=== PATIENT | female | born 1945 | race Caucasian/White ===

== ENCOUNTER 2017-06-26 14:22 | Inpatient (IN) | payer MEDICARE, OTHER ==
--- NOTE | 2017-06-26 14:35 | ED Physician Documentation ---
PD HPI ABD PAIN - Stated complaint Stated Complaint: NAUSEA,COUGH,SOA - Chief complaint Chief Complaint: Abd Pain - History obtained from History obtained from: Patient - History of Present Illness Timing - onset: Other (This is a 71-year-old woman with history of atrial fibrillation on Eliquis, also hysterectomy, cholecystectomy, and melanoma 20 years ago who presents with 5 days of feeling like her upper abdomen is occasionally in pain and hard with shortness of breath that is exertional but not positional. It is not associated with any pedal edema or calf pain but she did have right upper leg cramping last night. She feels very nauseous and has a moderate amount of epigastric pain.) Review of Systems Constitutional: reports: Chills, Fatigue. denies: Fever Ears: denies: Ear pain Nose: denies: Rhinorrhea / runny nose, Congestion Throat: denies: Sore throat Cardiac: denies: Chest pain / pressure, Pedal edema, Calf pain Respiratory: reports: Dyspnea, Cough (dry) GI: reports: Abdominal Pain, Nausea, Vomiting. 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 LVN: Hysterectomy Derm: Skin cancer surgery - Present Medications Home Medications: Ambulatory Orders Medication Instructions Recorded Confirmed Atorvastatin [Lipitor] 0 mg DAILY 02/24/16 02/24/16 Cyclobenzaprine [Flexeril] 10 mg PO TID PRN #20 tablet 02/24/16 Estrogens, Conjugated [Premarin] 0.3 mg PO DAILY 02/24/16 02/24/16 Levothyroxine [Synthroid] 25 mcg PO QDAC 02/24/16 02/24/16 Lidocaine Patch 5% [Lidoderm Patch] 1 each TOP DAILY PRN #10 patch 02/24/16 Lisinopril 20 mg PO DAILY 02/24/16 02/24/16 Metformin HCl [Metformin HCl ER] 1,000 mg PO BID 02/24/16 02/24/16 Ondansetron Odt [Zofran] 4 mg TL Q6H PRN #10 tablet 02/24/16 - Allergies Allergies/Adverse Reactions: Allergies Allergy/AdvReac Type Severity Reaction Status Date / Time albuterol Allergy Unknown Verified 06/26/17 14:30 propoxyphene napsylate * Allergy Hallucinati Verified 06/26/17 14:30 [From Darvocet-N] ons tetracycline Allergy Unknown Verified 06/26/17 14:30 oxycodone HCl * AdvReac Hallucinati Verified 06/26/17 14:30 [From Percocet] ons - Social History Does the pt smoke?: No Smoking Status: Never smoker Does the pt drink ETOH?: No Does the pt have substance abuse?: No - Immunizations Immunizations are current?: Yes PD ED PE NORMAL - Vitals Vital signs reviewed: Yes (Tachycardic, hypertensive) - General General: Alert and oriented X 3, No acute distress - HEENT HEENT: PERRL, EOMI - Neck Neck: Supple, no meningeal sign, No bony TTP - Cardiac Cardiac: Other (Tachycardic, regular, no murmur) - Respiratory Respiratory: No respiratory distress, Clear bilaterally - Abdomen Abdomen: Other (Absent bowel tones, no tenderness.) - Back Back: No CVA TTP, No spinal TTP - Derm Derm: Normal color, Warm and dry - Extremities Extremities: No edema, No calf tenderness / cord - Neuro Neuro: Alert and oriented X 3, Normal speech - Psych Psych: Normal mood, Normal affect Results - Vitals Vitals: Vital Signs - 24 hr 06/26/17 06/26/17 14:27 14:32 Temperature 36.1 C L Heart Rate 121 H Respiratory 20 Rate Blood Pressure 191/95 H O2 Saturation 99 Oxygen O2 Source Room air - EKG (time done) 1435 Rate: Rate (enter#) (115) Rhythm: Sinus tachycardia [place]: Normal Intervals: Normal [place], Prolonged QT QRS: Normal Ischemia: Normal ST segments Computer interpretation: Agree with computer - Labs Labs: Laboratory Tests 06/26/17 06/26/17 06/26/17 14:35 14:35 14:35 WBC 6.7 RBC 4.33 Hgb 13.4 Hct 39.1 MCV 90.3 MCH 30.9 MCHC 34.2 RDW 15.6 H Plt Count 142 MPV 8.4 Neut # 4.4 Lymph # 1.4 L Ida # 0.7 Eos # 0.1 Baso # 0.0 Absolute Nucleated RBC 0.00 Nucleated RBC % 0.1 PT 14.9 H INR 1.3 H Sodium 133 L Potassium 2.5 L* Chloride 95 L Carbon Dioxide 23 Anion Gap 15.0 H BUN 17 Creatinine 0.8 Estimated GFR (MDRD) 71 L Glucose 98 Lactic Acid Calcium 9.2 Magnesium 1.5 L Total Bilirubin 3.4 H AST 159 H ALT 59 Alkaline Phosphatase 261 H Total Creatine Kinase 92 CK-MB (CK-2) Troponin I Total Protein 8.9 H Albumin 3.2 Globulin 5.7 H Albumin/Globulin Ratio 0.6 L Lipase 49 Ethyl Alcohol 06/26/17 06/26/17 06/26/17 14:35 14:35 14:50 WBC RBC Hgb Hct MCV MCH MCHC RDW Plt Count MPV Neut # Lymph # Ida # Eos # Baso # Absolute Nucleated RBC Nucleated RBC % PT INR Sodium Potassium Chloride Carbon Dioxide Anion Gap BUN Creatinine Estimated GFR (MDRD) Glucose Lactic Acid 2.3 H Calcium Magnesium Total Bilirubin AST ALT Alkaline Phosphatase Total Creatine Kinase CK-MB (CK-2) 2.4 Troponin I < 0.04 Total Protein Albumin Globulin Albumin/Globulin Ratio Lipase Ethyl Alcohol 5.7 - Rads (name of study) 2v chest Radiology: EMP read contemporaneously (normal) PD MEDICAL DECISION MAKING - ED course ED course: 71-year-old woman with abdominal pain, found to be jaundiced. She is status post remote cholecystectomy. Imaging as shown and concerning for malignancy. She also has severe hypokalemia. Spoke with Dr. Manning for admission and further evaluation including liver MRI and pelvic ultrasound at 5:15 PM. Departure - Departure Disposition: 66 [facility] DC/Xfer Clinical Impression: Liver mass, Ovarian mass, Hypokalemia Ascites Qualifiers: Ascites type: malignant Qualified Code(s): R18.0 - Malignant ascites Condition: Stable
[2017-06-26] MEDS ORDERED: SODIUM CHLORIDE 0.9% 1,000 ML IV ONE ×2 (14:37→15:21)
[2017-06-26] MEDS ORDERED: ONDANSETRON 4 MG/2 ML VIAL IVP STA (14:37)
[2017-06-26 14:46] LABS: BASOPHILS % (AUTO) 0.7 %; EOSINOPHILS # (AUTO) 0.1 10^3/uL (0.0-0.7); EOSINOPHILS % (AUTO) 0.8 %; HGB - HEMOGLOBIN 13.4 g/dL (12.0-16.0); LYMPHOCYTES # (AUTO) 1.4 10^3/uL (1.5-3.5); LYMPHOCYTES % (AUTO) 21.5 %; MEAN CORPUSCULAR HEMOGLOBIN 30.9 pg (27.0-31.0); MEAN CORPUSCULAR HGB CONC 34.2 g/dL (32.0-36.0); MEAN CORPUSCULAR VOLUME 90.3 fL (81.0-99.0); MEAN PLATELET VOLUME 8.4 fL (7.9-10.8); MONOCYTES # (AUTO) 0.7 10^3/uL (0.0-1.0); NEUTROPHILS # (AUTO) 4.4 10^3/uL (1.5-6.6); PLT - PLATELET COUNT 142 10^3/uL (130-450); RED BLOOD COUNT 4.33 10^6/uL (4.20-5.40); RED CELL DISTRIBUTION WIDTH 15.6 % (12.0-15.0); WHITE BLOOD COUNT 6.7 x10^3/uL (4.8-10.8)
[2017-06-26 14:54] LABS: INR 1.3 (0.8-1.2); PT - PROTHROMBIN TIME 14.9 secs (9.9-12.6)
[2017-06-26] MEDS ORDERED: IOPAMIDOL-300 50 ML VIAL ONE (15:03)
[2017-06-26 15:07] LABS: ALBUMIN 3.2 g/dL (3.2-5.5); ALBUMIN/GLOBULIN RATIO 0.6 (1.0-2.2); BILIRUBIN,TOTAL 3.4 mg/dL (0.2-1.0); CALCIUM 9.2 mg/dL (8.5-10.3); CREATININE 0.8 mg/dL (0.4-1.0); MAGNESIUM 1.5 mg/dL (1.7-2.8); TOTAL PROTEIN 8.9 g/dL (6.7-8.2); TROPONIN I < 0.04 ng/mL (<0.49)
[2017-06-26] MEDS ORDERED: POTASSIUM CHLOR 10 MEQ/100 ML 10 MEQ/100 ML BAG IV ONE ×2 (15:07→15:08)
[2017-06-26] MEDS ORDERED: MAGNESIUM SULFATE 2 GRAM 2 GM/50 ML BAG IV ONE (15:08)
[2017-06-26 15:09] LABS: CREATINE KINASE MB 2.4 ng/mL (0.6-6.3)
[2017-06-26] MEDS ORDERED: IOPAMIDOL-300 100 ML VIAL ONE (15:26)
--- NOTE | 2017-06-26 15:29 | XRAY Preliminary Report ---
Exam: XR CHEST 2 VIEW X-RAY IMPRESSION: No acute cardiopulmonary abnormality. [facility] SITE ID: [id number]
--- NOTE | 2017-06-26 15:30 | XRAY Report ---
EXAM: CHEST RADIOGRAPHY EXAM DATE: 06/26/2017 03:12 PM. CLINICAL HISTORY: Cough. COMPARISON: 04/27/2009. TECHNIQUE: 2 views. FINDINGS: Lungs/Pleura: No focal opacities evident. No pleural effusion. No pneumothorax. Normal volumes. Mediastinum: There is mild aortic arch atherosclerotic calcification. Heart size is normal. Other: None. IMPRESSION: No acute cardiopulmonary abnormality. [facility] Referring Provider Line: [phone] SITE ID: [id number]
[2017-06-26] MEDS ORDERED: IOPAMIDOL-300 50 ML VIAL PO ONE (16:44)
[2017-06-26] MEDS ORDERED: LORazepam 2 MG/ML VIAL IVP STA (16:44)
[2017-06-26] MEDS ORDERED: IOPAMIDOL-300 100 ML VIAL IVP ONE (16:46)
--- NOTE | 2017-06-26 17:07 | CT Report ---
EXAM: CT ABDOMEN AND PELVIS EXAM DATE: 06/26/2017 04:33 PM. CLINICAL HISTORY: IV and PO, abd pain, no bowel tones. COMPARISONS: None. TECHNIQUE: Routine helical CT imaging was performed through the abdomen and pelvis. IV contrast: ISOV UE 300 100mL. Enteric contrast: Yes. Reconstructions: Coronal and sagittal. In accordance with CT protocol optimization, one or more of the following dose reduction techniques w ere utilized for this exam: automated exposure control, adjustment of mA and/or KV based on patient s ize, or use of iterative reconstructive technique. FINDINGS: Lung Bases: Unremarkable. Liver: There are findings of diffuse and chronic liver disease with a moderately lobulated contour to the liver capsule. In segment 8, there is a round hyperdense lesion which measures 3.5 x 3.3 x 2.8 c m on series 3 image 15. The portal veins do not appear to enhance well with contrast and are difficul t to characterize. There is a crescent of contrast opacification in the left portal vein, raising the suspicion for portal venous clot or portal venous tumor. The hepatic veins are not well seen. The in ferior vena cava is patent. Gallbladder/Bile Ducts: Gallbladder is absent. Spleen: Normal. Pancreas: The pancreas is difficult to visualize, noting a dilated superior mesenteric vein and splen ic vein which appear isodense to pancreatic parenchyma. Adrenal Glands: Normal. Kidneys: Normal. No masses or hydronephrosis. Peritoneal Cavity/Bowel: There is a small volume of free fluid in the upper abdomen and lower abdomen . There are recanalized umbilical veins with multiple abdominal varices. There is edema of the wall o f the colon. There is no mechanical bowel obstruction. No organized abscess is seen. Pelvic Organs: There is a peripherally enhancing cystic lesion in the right adnexa measuring 4.6 x 3. 9 x 3.5 cm. Uterus not visualized. Left ovary is small in size. Vasculature: No aneurysm. Bones: There is multilevel degenerative disease of the spine. Other: None. IMPRESSION: 1. Findings of chronic liver disease and liver fibrosis/cirrhosis. 2. Heterogeneous hypoenhancement of the intrahepatic portal veins with dilated splenic veins and supe rior mesenteric veins. Findings suspicious for portal vein thrombosis versus portal vein tumor. 3. 3.5 cm segment 8 liver mass, hyperdense to liver parenchyma, should be considered worrisome for pr imary liver malignancy, with differential diagnosis including hypervascular liver metastasis or incid ental benign liver lesion. This lesion could be characterized with a dedicated liver MRI or multiphas e CT. 4. Small volume of ascites. 5. Multiple abdominal varices. 6. Colonic wall edema, likely secondary to ascites or liver disease. 7. Cystic lesion in the right ovary measuring 4.6 cm in diameter. Cyst versus benign or malignant cys tic neoplasm. [facility] Referring Provider Line: [phone] SITE ID: [id number]
[2017-06-26] MEDS ORDERED: TEMAZEPAM 15 MG CAPSULE PO PRN (17:39)
[2017-06-26] MEDS ORDERED: IBUPROFEN 600 MG TABLET PO PRN (17:39)
[2017-06-26] MEDS ORDERED: LORazepam 0.5 MG TABLET PO PRN (17:43)
[2017-06-26 18:09] LABS: BILIRUBIN,URINE NEGATIVE (NEGATIVE); GLUCOSE, URINE (UA) NEGATIVE (NEGATIVE); KETONES,URINE (UA) NEGATIVE (NEGATIVE); LEUKOCYTE ESTERASE, URINE NEGATIVE (NEGATIVE); NITRITE,URINE NEGATIVE (NEGATIVE); OCCULT BLOOD,URINE NEGATIVE (NEGATIVE); PH,URINE 7.5 PH (5.0-7.5); PROTEIN,URINE NEGATIVE (NEGATIVE); UROBILINOGEN,URINE 0.2 (NORMAL) E.U./dL (NORMAL)
[2017-06-26 18:11] LABS: CLARITY,URINE CLEAR (CLEAR)
[2017-06-26] MEDS ORDERED: HYDROmorphone 1 MG/ML SYRINGE IVP PRN (18:37)
[2017-06-26] MEDS ORDERED: LORazepam 0.5 MG TABLET SL PRN (18:51)
[2017-06-26] MEDS ORDERED: PROCHLORPERAZINE 25 MG SUPP PR PRN (18:52)
[2017-06-26] MEDS ORDERED: ONDANSETRON 4 MG/2 ML VIAL IVP PRN (18:52)
--- NOTE | 2017-06-26 18:53 | HISTORY & PHYSICAL EXAMINATION ---
Chief Complaint - Chief Complaint Chief Complaint: nausea, vomiting, diarrhea History of Present Illness - Admitted From Admitted From:: ED - History Obtained From Records Reviewed: yes History obtained from: chart review, patient Exam Limitations: ongoing N/V - History of Present Illness HPI Comment/Other: Sommer Deluna is a 71-year old white female with a past medical history of hypertension, hyperlipidemia, TIA, headaches, sinusitis, DM type 2, hypothyroidism, melanoma ~20, and recent atrial fibrillation on Eliquis. She presented reluctantly to the ED today after having uncontrolled N/V/D, abdominal pain, chills and fatigue. The onset of symptoms started a short time after being diagnosed with atrial fibrillation. She was found to have low magnesium, and low potassium serum blood levels and placed on high dose supplements. She states that her emotions became very flat, she became overwhelmed with her regular daily tasks, developed a dry cough, had daily frontal forehead headaches, and was profoundly tired for most days. About 4-5 days ago she had increased abdominal discomfort that began in her RUQ and felt crampy to her midline. This would come and go. She continued to feel nauseated , dizzy, now with vomiting and diarrhea. A CT abdomen/pelvis was completed in the ED and shows a liver and ovarian tumor, multiple abdominal varices, and colonic wall edema. Results were shared with patient and her son by ER doctor. She will be admitted for further treatment of her symptoms and an ultrasound/ MRI of abdomen/pelvis. History - Past Medical History Cardiovascular: reports: Hypertension, High cholesterol Respiratory: reports: None Neuro: reports: CVA, Headache/migraine Endocrine/Autoimmune: reports: Type 2 diabetes, HyPOthyroidism GI: reports: GERD ACT TUTOR: reports: None, Other : reports: None HEENT: reports: Chronic sinusitis Psych: reports: Depression, Anxiety Musculoskeletal: reports: None Derm: reports: None MRSA Hx?: No - Past Surgical History General: reports: Cholecystectomy, Appendectomy /ACT TUTOR: reports: Hysterectomy Derm: reports: Skin cancer surgery - Family & Social History Family History: Mother: , Father: , CAD, Sister: , Cancer Living arrangement: At home Living Situation: Alone Social History Notes: Patient is x 20 years [place] He has 3 kids, one son lives nearby and is her main support. 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 She denies alcohol use, but was + for alcohol at the time of admission, admits to daily marijuana use, denies tobacco abuse or illicit drug use. - Substance History Use: Uses substance without health or social issues: Cannabis Abuse: Recurrent use of substance despite neg consequences: Cannabis Dependence: Experiences withdrawal or developed tolerances: Cannabis Tobacco Details: Other - POLST Patient has POLST: No POLST Status: DNR Meds/Allgy - Home Medications Home Medications: Ambulatory Orders Medication Instructions Recorded Confirmed Estrogens, Conjugated [Premarin] 0.3 mg PO DAILY 02/24/16 06/27/17 Lisinopril 20 mg PO BID 02/24/16 06/27/17 Metformin HCl [Metformin HCl ER] 1,000 mg PO BIDWM 02/24/16 06/27/17 Apixaban [Eliquis] 5 mg PO BID 06/27/17 06/27/17 Chlorthalidone 12.5 mg PO DAILY 06/27/17 06/27/17 Lactobacillus Acidophilus 1 cap PO BIDWM 06/27/17 06/27/17 [Acidophilus Lactobacilli] Levothyroxine Sodium [Synthroid] 200 mcg PO QDAC 06/27/17 06/27/17 Magnesium Oxide [Magnesium] 250 mg PO BID 06/27/17 06/27/17 Metoprolol Succinate 50 mg PO QPM 06/27/17 06/27/17 Metoprolol Succinate 100 mg PO DAILY 06/27/17 06/27/17 Potassium Chloride 60 meq PO BID 06/27/17 06/27/17 - Allergies Allergies/Adverse Reactions: Allergies Allergy/AdvReac Type Severity Reaction Status Date / Time albuterol Allergy Unknown Verified 06/26/17 14:30 propoxyphene napsylate * Allergy Hallucinati Verified 06/26/17 14:30 [From Darvocet-N] ons tetracycline Allergy Unknown Verified 06/26/17 14:30 oxycodone HCl * AdvReac Hallucinati Verified 06/26/17 14:30 [From Percocet] ons Review of Systems - Constitutional Constitutional: reports: Fatigue, Weakness, Poor appetite - Eyes Eyes: reports: Corrective lenses - Ears, Nose & Throat Ears, Nose & Throat: reports: Nasal congestion - Cardiovascular Cariovascular: reports: Irregular heart rate, Palpitations, Edema, Decr. exercise tolerance - Respiratory Respiratory: reports: Cough (chronic) - Gastrointestinal Gastrointestinal: reports: Abdominal pain, Abdominal distention, Diarrhea, Change in bowel habits, Nausea, Vomiting, Bile emesis, Reflux/heartburn, Bloating, Poor appetite - Genitourinary Genitourinary: reports: Frequency - Musculoskeletal Musculoskeletal: reports: Joint swelling - Neurological Neurological: reports: General weakness, Headache, Other (nausea x3 months.) - Psychiatric Psychiatric: reports: Depression - All Other Systems All Other Systems: reports: Reviewed and negative Exam - Vital Signs Reviewed Vital Signs: Yes Vital Signs: Vital Signs x48h Temp Pulse Resp BP Pulse Ox 06/26/17 18:27 36.8 C 88 16 154/77 H 99 - Physical Exam General Appearance: positive: Alert, Moderate distress, Anxious Eyes Bilateral: positive: Normal inspection, PERRL ENT: positive: ENT inspection nml, Pharynx nml, Dry mucous membranes Neck: positive: Nml inspection, Thyroid nml, No JVD, Trachea midline, Stiff neck Respiratory: positive: Chest non-tender, No respiratory distress, Other ( diminished) Cardiovascular: positive: Regular rate & rhythm, No gallop, Decreased pulse(s) Peripheral Pulses: positive: 2+ Abdomen: positive: Guarding, Rebound, Hepatomegaly, Abnml bowel sounds (hypo) Skin: positive: No rash, Warm, Dry Extremities: positive: Non-tender, Full ROM, No pedal edema Neurologic/Psychiatric: positive: Oriented x3, CN's nml (2-12), Motor nml, Sensation nml, Depressed mood/affect Reflexes: Bicep (R): 3+, Bicep (L): 3+ Conclusion/Plan - Problem List (1) Intractable nausea and vomiting Conclusion/Plan: Patient has admitted to slight nausea daily that began ~3 months ago, but has progressively increased to the point that it has now caused vomiting. Plan: Head CT to rule out acute bleed, or tumor as a cause of nausea. This is likely a consequence of liver cirrhosis. We will continue antiemetics for symptom management. (2) Hypokalemia Conclusion/Plan: Patient admits to chronically being hypokalemic for at least since January 2017 when she was found to have atrial fibrillation. Patient had a very low K+ of just 2.5 upon admission to ED. She was started on replacement, and once arriving to the nursing floor was put on a maintenance fluid with 20Meq @ 100ml/ hour. Plan: Continue to monitor labs, and replace as needed. (3) Liver mass Conclusion/Plan: A CT of abdomen/pelvis was completed on admission and showed a 3.5 cm segment 8 liver mass, worrisome for primary liver malignancy. Patient and son made aware of this finding via ED doctor. Plan: MRI would be ideal and can be ordered for Wednesday if patient is agreeable to staying another night. (4) Ovarian mass Conclusion/Plan: A CT abdomen/pelvis was completed on admission and shows a cystic lesion in the right ovary measuring 4.6cm in diameter. Cyst versus benign or malignant cystic neoplasm. Plan: Ultrasound of pelvis will be ordered before discharge. (5) Headache Conclusion/Plan: Patient notes a "dull" headache that started several months ago. She points to in her frontal region right above her bilateral eyes. Plan: Treat with pain medications. Will suggest sinus lavage when patient discharges. Qualifiers: Headache type: unspecified Headache chronicity pattern: acute headache Intractability: not intractable Qualified Code(s): R51 - Headache - Lab Results Lab results reviewed: Yes Fish Bones: 06/27/17 06:10 06/27/17 17:11 - Diagnostic Imaging Results Diagnostic Imaging Results: positive: Prelim report reviewed, Final report reviewed - EKG Results EKG Interpreted Independently: Yes Core Measures - Anticipated LOS I expect patient to be DC'd or transferred within 96 hours.: Yes - DVT/VTE - Prophylaxis VTE/DVT Device ordered at admit?: Yes VTE/DVT Prophylaxis med ordered at admit?: No Not Ordered - Medical Reason: Contraindicated - Stroke - Rehab Assessment Rehab services assessment to be ordered?: No Not Ordered - Medical Reason: Contraindicated - AMI - Statin at Admit Aspirin Prescribed on Admit: No Not Ordered - Medical Reason: Contraindicated
[2017-06-26] MEDS: PANTOPRAZOLE 40 MG TABLET PO SCH (18:54)
[2017-06-26] MEDS: NS W/20 MEQ KCL 1,000 ML IV SCH (18:55)
[2017-06-26] MEDS ORDERED: SODIUM CHLORIDE FLUSH 0.9% 10 ML SYRINGE ONE (18:56)
[2017-06-26] MEDS: INSULIN ASPART 300 UNIT/3 ML PEN SUBQ SCH (20:40)
[2017-06-26] MEDS: METOCLOPRAMIDE 10 MG/2 ML VIAL IVP SCH (20:55)
[2017-06-26] MEDS: INSULIN GLARGINE 300 UNIT/3 ML PEN SUBQ SCH (20:55)
[2017-06-26] MEDS: SODIUM CHLORIDE FLUSH 0.9% 10 ML SYRINGE IVP SCH (21:45)
--- NOTE | 2017-06-27 00:05 | CT Preliminary Report ---
Exam: CT HEAD W/O IMPRESSION: Normal noncontrast head CT. [facility] SITE ID: [id number]
--- NOTE | 2017-06-27 00:07 | CT Report ---
EXAM: CT HEAD EXAM DATE: 06/26/2017 10:29 PM. CLINICAL HISTORY: Tumor, bleed. COMPARISON: Brain MRI 02/24/2016. TECHNIQUE: Multiaxial CT images were obtained from the foramen magnum to the vertex. Reformats: Coron al. IV contrast: None. In accordance with CT protocol optimization, one or more of the following dose reduction techniques w ere utilized for this exam: automated exposure control, adjustment of mA and/or KV based on patient s ize, or use of iterative reconstructive technique. FINDINGS: Parenchyma: No intraparenchymal hemorrhage. No evidence of mass, midline shift, or CT findings of inf arction. Benitez-white differentiation is distinct. Extraaxial Spaces: Normal for age. No subdural or epidural collections identified. Ventricles: Normal in size and position. Sinuses and Orbits: Imaged paranasal sinuses, orbits, and mastoids show no significant abnormality. Bones: No evidence of fracture or calvarial defect. Other: None. IMPRESSION: Normal noncontrast head CT. [facility] Referring Provider Line: [phone] SITE ID: [id number]
[2017-06-27] MEDS: SODIUM CHLORIDE FLUSH 0.9% 10 ML SYRINGE IVP PRN (02:15)
[2017-06-27] MEDS: METOCLOPRAMIDE 10 MG/2 ML VIAL IVP SCH ×4 (02:15→20:16)
[2017-06-27] MEDS: NS W/20 MEQ KCL 1,000 ML IV SCH ×2 (03:37→17:23)
[2017-06-27] MEDS: SODIUM CHLORIDE FLUSH 0.9% 10 ML SYRINGE IVP SCH ×3 (06:03→21:40)
[2017-06-27] MEDS: PANTOPRAZOLE 40 MG TABLET PO SCH (06:03)
[2017-06-27 06:22] LABS: BASOPHILS % (AUTO) 0.2 %; EOSINOPHILS % (AUTO) 0.1 %; HGB - HEMOGLOBIN 11.5 g/dL (12.0-16.0); LYMPHOCYTES # (AUTO) 0.6 10^3/uL (1.5-3.5); LYMPHOCYTES % (AUTO) 16.8 %; MEAN CORPUSCULAR HEMOGLOBIN 30.7 pg (27.0-31.0); MEAN CORPUSCULAR HGB CONC 34.1 g/dL (32.0-36.0); MEAN CORPUSCULAR VOLUME 90.1 fL (81.0-99.0); MEAN PLATELET VOLUME 8.5 fL (7.9-10.8); MONOCYTES # (AUTO) 0.3 10^3/uL (0.0-1.0); MONOCYTES % (AUTO) 8.1 %; NEUTROPHILS # (AUTO) 2.8 10^3/uL (1.5-6.6); NEUTROPHILS % (AUTO) 74.8 %; PLT - PLATELET COUNT 84 10^3/uL (130-450); RED BLOOD COUNT 3.75 10^6/uL (4.20-5.40); RED CELL DISTRIBUTION WIDTH 15.4 % (12.0-15.0); WHITE BLOOD COUNT 3.8 x10^3/uL (4.8-10.8)
[2017-06-27 06:34] LABS: INR 1.4 (0.8-1.2); PT - PROTHROMBIN TIME 15.5 secs (9.9-12.6)
[2017-06-27 06:40] LABS: ALBUMIN 2.6 g/dL (3.2-5.5); ALBUMIN/GLOBULIN RATIO 0.5 (1.0-2.2); BILIRUBIN,TOTAL 2.8 mg/dL (0.2-1.0); CALCIUM 8.3 mg/dL (8.5-10.3); CREATININE 0.7 mg/dL (0.4-1.0); MAGNESIUM 1.8 mg/dL (1.7-2.8); TOTAL PROTEIN 7.5 g/dL (6.7-8.2)
[2017-06-27 06:57] LABS: HB2 TOTAL 12.3 g/dL; HEMOGLOBIN A1C 0.42 g/dL; HEMOGLOBIN A1C % 5.3 % (4.6-6.2)
--- NOTE | 2017-06-27 08:59 | PROVIDER PROGRESS NOTE ---
Subjective - Prog Note Date Prog Note Date: 06/27/17 Prog Note Time: 08:59 - Subjective Pt reports feeling: Improved Subjective: Sommer states that she would be much happier at home, but reluctantly agrees to stay tonight given her numerous stools and abnormal electrolytes. Patient can undergo further testing is she is agreeable to stay as tomorrow is Wednesday. She denies SOB, chest pain, or a new cough. She admits to less nausea today, not vomiting and can tolerate a moderate amount of fluids. Current Medications - Current Medications Current Medications: Active Medications Apixaban (Eliquis) 5 mg PO BID [facility] Last Admin: 06/27/17 21:37 Dose: 5 mg Diphenoxylate HCl/Atropine (Lomotil) 1 tab PO QID PRN PRN Reason: Diarrhea Last Admin: 06/27/17 21:55 Dose: 1 tab Dronabinol (Marinol) 2.5 mg PO BIDAC [facility] Last Admin: 06/27/17 21:36 Dose: Not Given Hydromorphone HCl (Dilaudid Inj Syringe) 0.5 mg IVP Q2H PRN PRN Reason: PAIN Last Admin: 06/26/17 18:55 Dose: 0.5 mg Potassium Chloride/Sodium Chloride (Normal Saline 0.9% W/20 Meq Kcl) 1,000 mls @ 100 mls/hr IV .Q10H [facility] Last Admin: 06/27/17 17:23 Dose: 100 mls/hr Ibuprofen (Motrin) 600 mg PO Q6HR PRN PRN Reason: Pain 1 to 4 Insulin Aspart (Novolog) 1 - 5 unit SUBQ 0800,1200,1700,2100 [facility] PRN Reason: Protocol Last Admin: 06/27/17 21:35 Dose: Not Given Insulin Glargine (Lantus Solostar) 10 unit SUBQ QPM [facility] Last Admin: 06/27/17 21:39 Dose: 10 unit Levothyroxine Sodium (Synthroid) 200 mcg PO QDAC [facility] Last Admin: 06/27/17 12:04 Dose: 200 mcg Lisinopril (Zestril) 20 mg PO BID [facility] Last Admin: 06/27/17 21:38 Dose: 20 mg Loperamide HCl (Imodium Liquid) 2 mg PO Q4H PRN PRN Reason: Diarrhea Lorazepam (Ativan) 0.5 mg PO Q4H PRN PRN Reason: Anxiety Lorazepam (Ativan) 0.5 mg SL Q6H PRN PRN Reason: Anxiety Last Admin: 06/26/17 23:43 Dose: 0.5 mg Lorazepam (Ativan) 1 mg PO TID [facility] Last Admin: 06/27/17 21:38 Dose: 1 mg Metoclopramide HCl (Reglan Inj) 5 mg IVP Q6H [facility] Last Admin: 06/27/17 20:16 Dose: 5 mg Metoprolol Succinate (Toprol Xl) 50 mg PO QPM [facility] Last Admin: 06/27/17 21:37 Dose: 50 mg Metoprolol Succinate (Toprol Xl) 100 mg PO DAILY [facility] Last Admin: 06/27/17 12:05 Dose: 100 mg Ondansetron HCl (Zofran Inj) 4 mg IVP Q6HR PRN PRN Reason: Nausea / Vomiting Last Admin: 06/26/17 19:07 Dose: 4 mg Pantoprazole Sodium (Protonix) 40 mg PO QDAC [facility] Last Admin: 06/27/17 06:03 Dose: 40 mg Polyethylene Glycol (Miralax) 17 gm PO DAILY [facility] Last Admin: 06/27/17 09:09 Dose: Not Given Prochlorperazine Maleate (Compazine Supp) 25 mg RI TID PRN PRN Reason: Nausea / Vomiting Last Admin: 06/26/17 19:45 Dose: 25 mg Sodium Chloride (Normal Saline Flush 0.9%) 10 ml IVP PRN PRN PRN Reason: NEEDED PER PROVIDER ORDERS Last Admin: 06/27/17 02:15 Dose: 10 ml Sodium Chloride (Normal Saline Flush 0.9%) 10 ml IVP Q8HR [facility] Last Admin: 06/27/17 21:40 Dose: Not Given Spironolactone (Aldactone) 50 mg PO DAILY [facility] Last Admin: 06/27/17 21:55 Dose: 50 mg Temazepam (Restoril) 15 mg PO QPM PRN PRN Reason: Insomnia Estrogens, Conjugated [Premarin] 0.3 mg PO DAILY 02/24/16 Metformin HCl [Metformin HCl ER] 1,000 mg PO BIDWM 02/24/16 RX: Lisinopril 20 mg PO BID 10/03/16 Apixaban [Eliquis] 5 mg PO BID 06/27/17 Levothyroxine Sodium [Synthroid] 200 mcg PO QDAC 06/27/17 Magnesium Oxide [Magnesium] 250 mg PO BID 06/27/17 RX: Chlorthalidone 12.5 mg PO DAILY 06/27/17 RX: Lactobacillus Acidophilus [Acidophilus Lactobacilli] 1 cap PO BIDWM RX: Metoprolol Succinate 50 mg PO QPM 06/27/17 RX: Metoprolol Succinate 100 mg PO DAILY 06/27/17 RX: Potassium Chloride 60 meq PO BID 06/27/17 Objective - Vital Signs/Intake & Output Reviewed Vital Signs: Yes Vital Signs: Vital Signs x48h Temp Pulse Resp BP Pulse Ox 06/27/17 08:03 36.6 C 104 H 18 138/88 H 98 06/27/17 06:00 36.5 C 95 16 129/79 98 06/27/17 01:29 36.5 C 92 16 133/75 H 96 Intake & Output: Intake & Output 06/24/17 06/25/17 06/26/17 06/27/17 23:59 23:59 23:59 23:59 Intake Total 150 870 Balance 150 870 - Objective General Appearance: positive: No acute distress, Alert, Anxious Eyes Bilateral: positive: Normal inspection, PERRL ENT: positive: ENT inspection nml, Pharynx nml, Dry mucous membranes Neck: positive: Nml inspection, Thyroid nml, No JVD, Trachea midline, Stiff neck Respiratory: positive: Chest non-tender, No respiratory distress, Breath sounds nml Cardiovascular: positive: No gallop, Irregularly irregular, Systolic murmur, Decreased pulse(s) Peripheral Pulses: 2+ Radial (R), 2+ Radial (L) Abdomen: positive: Tenderness, Guarding, Hepatomegaly, Abnml bowel sounds Back: positive: Nml inspection Skin: positive: No rash, Warm, Dry Extremities: positive: Non-tender, Full ROM, Nml appearance, No pedal edema Neurologic/Psychiatric: positive: Oriented x3, CN's nml (2-12), Motor nml, Sensation nml, Depressed mood/affect Reflexes: Bicep (R): 2+, Bicep (L): 2+ - Lab Results Fish Bones: 06/27/17 06:10 06/27/17 17:11 Other Labs: Lab Results x24hrs 06/27/17 06/27/17 06/27/17 Range/Units 07:16 06:10 06:10 WBC (4.8-10.8) x10^3/uL RBC (4.20-5.40) 10^6/uL Hgb (12.0-16.0) g/dL Hct (37.0-47.0) % MCV (81.0-99.0) fL MCH (27.0-31.0) pg MCHC (32.0-36.0) g/dL RDW (12.0-15.0) % Plt Count (130-450) 10^3/uL MPV (7.9-10.8) fL Neut # (1.5-6.6) 10^3/uL Lymph # (1.5-3.5) 10^3/uL [place] # (0.0-1.0) 10^3/uL Eos # (0.0-0.7) 10^3/uL Baso # (0.0-0.1) 10^3/uL Absolute Nucleated RBC x10^3/uL Nucleated RBC % /100WBC PT (9.9-12.6) secs INR (0.8-1.2) Sodium (135-145) mmol/L Potassium (3.5-5.0) mmol/L Chloride (101-111) mmol/L Carbon Dioxide (21-32) mmol/L Anion Gap (6-13) BUN (6-20) mg/dL Creatinine (0.4-1.0) mg/dL Estimated GFR (MDRD) (>89) Glucose (70-100) mg/dL POC Whole Bld Glucose 118 H (70 - 100) mg/dL Glycated Hemoglobin (4.6-6.2) % Estim Average Glucose (70-100) Calcium (8.5-10.3) mg/dL Magnesium (1.7-2.8) mg/dL Total Bilirubin (0.2-1.0) mg/dL AST (10-42) IU/L ALT (10-60) IU/L Alkaline Phosphatase (42-121) IU/L Ammonia (7-35) umol/L Total Creatine Kinase (22-269) IU/L Troponin I < 0.04 (<0.49) ng/mL Total Protein (6.7-8.2) g/dL Albumin (3.2-5.5) g/dL Globulin (2.1-4.2) g/dL Albumin/Globulin Ratio (1.0-2.2) Triglycerides ( - 149) mg/dL Amylase (28-100) U/L TSH 10.44 H (0.34-5.60) uIU/mL 06/27/17 06/27/17 06/27/17 Range/Units 06:10 06:10 06:10 WBC (4.8-10.8) x10^3/uL RBC (4.20-5.40) 10^6/uL Hgb (12.0-16.0) g/dL Hct (37.0-47.0) % MCV (81.0-99.0) fL MCH (27.0-31.0) pg MCHC (32.0-36.0) g/dL RDW (12.0-15.0) % Plt Count (130-450) 10^3/uL MPV (7.9-10.8) fL Neut # (1.5-6.6) 10^3/uL Lymph # (1.5-3.5) 10^3/uL [place] # (0.0-1.0) 10^3/uL Eos # (0.0-0.7) 10^3/uL Baso # (0.0-0.1) 10^3/uL Absolute Nucleated RBC x10^3/uL Nucleated RBC % /100WBC PT 15.5 H (9.9-12.6) secs INR 1.4 H (0.8-1.2) Sodium 135 (135-145) mmol/L Potassium 3.0 L (3.5-5.0) mmol/L Chloride 102 (101-111) mmol/L Carbon Dioxide 22 (21-32) mmol/L Anion Gap 11.0 (6-13) BUN 15 (6-20) mg/dL Creatinine 0.7 (0.4-1.0) mg/dL Estimated GFR (MDRD) 82 L (>89) Glucose 122 H (70-100) mg/dL POC Whole Bld Glucose (70 - 100) mg/dL Glycated Hemoglobin (4.6-6.2) % Estim Average Glucose (70-100) Calcium 8.3 L (8.5-10.3) mg/dL Magnesium 1.8 (1.7-2.8) mg/dL Total Bilirubin 2.8 H (0.2-1.0) mg/dL AST 133 H (10-42) IU/L ALT 51 (10-60) IU/L Alkaline Phosphatase 211 H (42-121) IU/L Ammonia 18.5 (7-35) umol/L Total Creatine Kinase 160 (22-269) IU/L Troponin I (<0.49) ng/mL Total Protein 7.5 (6.7-8.2) g/dL Albumin 2.6 L (3.2-5.5) g/dL Globulin 4.9 H (2.1-4.2) g/dL Albumin/Globulin Ratio 0.5 L (1.0-2.2) Triglycerides 83 ( - 149) mg/dL Amylase 34 (28-100) U/L TSH (0.34-5.60) uIU/mL 06/27/17 06/27/17 06/26/17 Range/Units 06:10 06:10 20:32 WBC 3.8 L (4.8-10.8) x10^3/uL RBC 3.75 L (4.20-5.40) 10^6/uL Hgb 11.5 L (12.0-16.0) g/dL Hct 33.8 L (37.0-47.0) % MCV 90.1 (81.0-99.0) fL MCH 30.7 (27.0-31.0) pg MCHC 34.1 (32.0-36.0) g/dL RDW 15.4 H (12.0-15.0) % Plt Count 84 L (130-450) 10^3/uL MPV 8.5 (7.9-10.8) fL Neut # 2.8 (1.5-6.6) 10^3/uL Lymph # 0.6 L (1.5-3.5) 10^3/uL [place] # 0.3 (0.0-1.0) 10^3/uL Eos # 0.0 (0.0-0.7) 10^3/uL Baso # 0.0 (0.0-0.1) 10^3/uL Absolute Nucleated RBC 0.00 x10^3/uL Nucleated RBC % 0.0 /100WBC PT (9.9-12.6) secs INR (0.8-1.2) Sodium (135-145) mmol/L Potassium (3.5-5.0) mmol/L Chloride (101-111) mmol/L Carbon Dioxide (21-32) mmol/L Anion Gap (6-13) BUN (6-20) mg/dL Creatinine (0.4-1.0) mg/dL Estimated GFR (MDRD) (>89) Glucose (70-100) mg/dL POC Whole Bld Glucose 123 H (70 - 100) mg/dL Glycated Hemoglobin 5.3 (4.6-6.2) % Estim Average Glucose 105 H (70-100) Calcium (8.5-10.3) mg/dL Magnesium (1.7-2.8) mg/dL Total Bilirubin (0.2-1.0) mg/dL AST (10-42) IU/L ALT (10-60) IU/L Alkaline Phosphatase (42-121) IU/L Ammonia (7-35) umol/L Total Creatine Kinase (22-269) IU/L Troponin I (<0.49) ng/mL Total Protein (6.7-8.2) g/dL Albumin (3.2-5.5) g/dL Globulin (2.1-4.2) g/dL Albumin/Globulin Ratio (1.0-2.2) Triglycerides ( - 149) mg/dL Amylase (28-100) U/L TSH (0.34-5.60) uIU/mL - Diagnostic Imaging Diagnostic Imaging Results: positive: Final report reviewed Diagnostic Imaging Comments: Chest x-ray 2-view: FINDINGS: Lungs/Pleura: No focal opacities evident. No pleural effusion. No pneumothorax. Normal volumes. Mediastinum: There is mild aortic arch atherosclerotic calcification. Heart size is normal. Other: None. IMPRESSION: No acute cardiopulmonary abnormality. CT head: ordered due to ongoing nausea. FINDINGS: Parenchyma: No intraparenchymal hemorrhage. No evidence of mass, midline shift, or CT findings of infarction. Benitez-white differentiation is distinct. Extraaxial Spaces: Normal for age. No subdural or epidural collections identified. Ventricles: Normal in size and position. Sinuses and Orbits: Imaged paranasal sinuses, orbits, and mastoids show no significant abnormality. Bones: No evidence of fracture or calvarial defect. Other: None. IMPRESSION: Normal noncontrast head CT. Abdomen/Pelvis CT: FINDINGS: Lung Bases: Unremarkable. Liver: There are findings of diffuse and chronic liver disease with a moderately lobulated contour to the liver capsule. In segment 8, there is a round hyperdense lesion which measures 3.5 x 3.3 x 2.8 cm on series 3 image 15. The portal veins do not appear to enhance well with contrast and are difficult to characterize. There is a crescent of contrast opacification in the left portal vein, raising the suspicion for portal venous clot or portal venous tumor. The hepatic veins are not well seen. The inferior vena cava is patent. Gallbladder/Bile Ducts: Gallbladder is absent. Spleen: Normal. Pancreas: The pancreas is difficult to visualize, noting a dilated superior mesenteric vein and splenic vein which appear isodense to pancreatic parenchyma. Adrenal Glands: Normal. Kidneys: Normal. No masses or hydronephrosis. Peritoneal Cavity/Bowel: There is a small volume of free fluid in the upper abdomen and lower abdomen. There are recanalized umbilical veins with multiple abdominal varices. There is edema of the wall of the colon. There is no mechanical bowel obstruction. No organized abscess is seen. Pelvic Organs: There is a peripherally enhancing cystic lesion in the right adnexa measuring 4.6 x 3.9 x 3.5 cm. Uterus not visualized. Left ovary is small in size. Vasculature: No aneurysm. Bones: There is multilevel degenerative disease of the spine. Other: None. IMPRESSION: 1. Findings of chronic liver disease and liver fibrosis/cirrhosis. 2. Heterogeneous hypoenhancement of the intrahepatic portal veins with dilated splenic veins and superior mesenteric veins. Findings suspicious for portal vein thrombosis versus portal vein tumor. 3. 3.5 cm segment 8 liver mass, hyperdense to liver parenchyma, should be considered worrisome for primary liver malignancy, with differential diagnosis including hypervascular liver metastasis or incidental benign liver lesion. This lesion could be characterized with a dedicated liver MRI or multiphase CT. 4. Small volume of ascites. 5. Multiple abdominal varices. 6. Colonic wall edema, likely secondary to ascites or liver disease. 7. Cystic lesion in the right ovary measuring 4.6 cm in diameter. Cyst versus benign or malignant cystic neoplasm. Assessment/Plan - Problem List (1) Intractable nausea and vomiting Impression: Patient has admitted to slight nausea daily that began ~3 months ago, but has progressively increased to the point that it has now caused vomiting. For today' s exam, nausea is less, vomiting is resolved, but diarrhea has not slowed down. Head CT to rule out acute bleed, or tumor as a cause of nausea, which was negative. This is likely a consequence of liver cirrhosis. Plan: We will continue antiemetics Lorazepam, and Reglan was added for symptom management. (2) Hypokalemia Impression: Patient admits to chronically being hypokalemic for at least since January 2017 when she was found to have atrial fibrillation. Patient had a very low K+ of just 2.5 upon admission to ED. She was started on replacement, and once arriving to the nursing floor was put on a maintenance fluid with 20Meq @ 100ml/ hour, which she remains on. Her K+ was improved today at 3, but decreased again to 2.8 upon re-check this evening. Plan: Continue to monitor labs, and replace as needed. Spironolactone 50mg daily was added as a K+ sparing agent. (3) Liver mass Impression: A CT of abdomen/pelvis was completed on admission and showed a 3.5 cm segment 8 liver mass, worrisome for primary liver malignancy. Patient and son made aware of this finding via ED doctor. Plan: MRI would be ideal and can be ordered for Wednesday if patient is agreeable to staying another night. A hepatitis panel was ordered and is pending as per PCP request. (4) Ovarian mass Impression: A CT abdomen/pelvis was completed on admission and shows a cystic lesion in the right ovary measuring 4.6cm in diameter. Cyst versus benign or malignant cystic neoplasm. Plan: Ultrasound of pelvis will be ordered before discharge and the results are pending. Cancer marker labs were ordered and pending. (5) Headache Impression: Patient notes a "dull" headache that started several months ago. She points to in her frontal region right above her bilateral eyes. Headache persists today. Plan: Treat with pain medications. Will suggest sinus lavage when patient discharges. Qualifiers: Headache type: unspecified Headache chronicity pattern: acute headache Intractability: not intractable Qualified Code(s): R51 - Headache
[2017-06-27] MEDS ORDERED: ENOXAPARIN 40 MG/0.4 ML SYRINGE SUBQ SCH (09:00)
[2017-06-27] MEDS: INSULIN ASPART 300 UNIT/3 ML PEN SUBQ SCH ×4 (09:08→21:35)
[2017-06-27] MEDS: POLYETHYLENE GLYCOL 3350 17 GM PACKET PO SCH (09:09)
[2017-06-27] MEDS ORDERED: LEVOTHYROXINE 25 MCG TABLET PO SCH (11:20)
[2017-06-27] MEDS ORDERED: MAGNESIUM SULFATE 2 GRAM 2 GM/50 ML BAG IV SCH (11:26)
[2017-06-27] MEDS ORDERED: POTASSIUM CHLORIDE INJ 40 MEQ in SODIUM CHLORIDE 0.9% 480 ML IV SCH (12:00)
[2017-06-27] MEDS: LEVOTHYROXINE 100 MCG TABLET PO SCH (12:04)
[2017-06-27] MEDS: METOPROLOL SUCCINATE 50 MG TABLET PO SCH (12:05)
[2017-06-27] MEDS: APIXABAN 2.5 MG TABLET PO SCH ×2 (12:06→21:37)
[2017-06-27] MEDS: LISINOPRIL 20 MG TABLET PO SCH ×2 (12:06→21:38)
[2017-06-27 17:28] LABS: CALCIUM 8.4 mg/dL (8.5-10.3); CREATININE 0.9 mg/dL (0.4-1.0)
[2017-06-27] MEDS ORDERED: DIPHENOX/ATROPINE 2.5/0.025 MG TABLET PO PRN (20:27)
[2017-06-27] MEDS ORDERED: LOPERAMIDE 2 MG/10 ML UDC PO PRN (20:46)
[2017-06-27] MEDS ORDERED: METOPROLOL SUCCINATE 50 MG TABLET PO SCH (21:00)
[2017-06-27] MEDS: DRONABINOL 2.5 MG CAPSULE PO SCH (21:36)
[2017-06-27] MEDS: LORazepam 0.5 MG TABLET PO SCH (21:38)
[2017-06-27] MEDS: INSULIN GLARGINE 300 UNIT/3 ML PEN SUBQ SCH (21:39)
[2017-06-27] MEDS: SPIRONOLACTONE 25 MG TABLET PO SCH (21:55)
--- NOTE | 2017-06-27 22:39 | Ultrasound Preliminary Report ---
Exam: US ABDOMEN LIMITED IMPRESSION: 1. 1. Technically compromised exam due to patient body habitus. 2. Majority of the main portal vein appears thrombosed, with a few areas of possible patency seen at the distal portion near the portal splenic confluence. 2. Partially thrombosed appearing left portal vein. Thrombosed right portal vein. 3. Diffuse coarsened hepatic parenchymal echogenicity representing cirrhosis. Known liver mass could not identify on this exam. 4. Small-volume upper abdominal ascites. 5. Status post cholecystectomy. No pathologic biliary dilatation. [facility] SITE ID: [id number]
--- NOTE | 2017-06-27 22:52 | Ultrasound Preliminary Report ---
Exam: US PELVIC COMPLETE - NON OB IMPRESSION: 1. Cystic lesion within the right adnexa corresponding with a prior CT noted abnormality. There is villanueva ggestion of internal septation and potential internal debris. Further assessment could be considered with MRI if clinically warranted. 2. Left ovary is not identified on this exam. 3. Medium amount of fluid layering within the pelvis. 4. Uterus is absent. [facility] SITE ID: [id number]
--- NOTE | 2017-06-27 22:59 | Ultrasound Report ---
EXAM: ABDOMEN ULTRASOUND LIMITED, RUQ EXAM DATE: 06/27/2017 09:47 PM. CLINICAL HISTORY: Liver mass, history of melanoma, and chronic liver disease. COMPARISON: CT 06/26/2017. TECHNIQUE: Real-time scanning was performed with static images obtained. FINDINGS: Liver: Heterogeneous liver echogenicity. No suspicious focal lesion. Liver measures 15.8 cm in length . Portal Vein: Main portal vein appears at least partially thrombosed. There is a small area of patent blood flow seen within the distal main portal vein. Partially patent left portal vein. Left hepatic vein appears patent. Gallbladder: Surgically absent. Biliary System: CBD measures 5.5 mm. No intrahepatic or extrahepatic ductal dilatation. Pancreas: Normal appearing head and body. Other portions are obscured by overlying structures. Right Kidney: Visualized portions of the right kidney are without significant abnormality. Right kid luis measures 11.8 cm in length. Other: There is volume perihepatic ascites. IMPRESSION: 1. Technically compromised exam due to patient body habitus. 2. Majority of the main portal vein appears thrombosed, with a few areas of possible patency seen at the distal portion near the portal splenic confluence. 2. Partially thrombosed-appearing left portal vein. Thrombosed right portal vein. 3. Diffuse coarsened hepatic parenchymal echogenicity representing cirrhosis. Known liver mass could not identify on this exam. 4. Small-volume upper abdominal ascites. 5. Status post cholecystectomy. No pathologic biliary dilatation. [facility] Referring Provider Line: [phone] SITE ID: [id number]
--- NOTE | 2017-06-27 22:59 | Ultrasound Report ---
EXAM: PELVIC ULTRASOUND EXAM DATE: 06/27/2017 09:47 PM. CLINICAL HISTORY: Right ovarian mass. COMPARISON: CT 06/26/2017. TECHNIQUE: Realtime transabdominal pelvic scan performed to identify the uterus and adnexa and as an overview of other pelvic structures, with static image documentation. FINDINGS: Patient body habitus compromises exam sensitivity and specificity. Uterus: Surgically absent. Right Ovary: Normal appearing right ovary is not visualized. There is a possible complex cystic struc ture measuring 5.5 x 3.8 x 3.7 cm in the right adnexa corresponding with the prior CT noted abnormali ty. Left Ovary: Not visualized. Fluid: There is ascites within the pelvis. Other: No other significant findings. IMPRESSION: 1. Cystic lesion within the right adnexa corresponding with a prior CT noted abnormality. There is villanueva ggestion of internal septation and potential internal debris. Further assessment could be considered with MRI if clinically warranted. 2. Left ovary is not identified on this exam. 3. Medium amount of fluid layering within the pelvis. 4. Uterus is absent. [facility] Referring Provider Line: [phone] SITE ID: [id number]
[2017-06-27] MEDS ORDERED: LISINOPRIL 20 MG TABLET PO SCH (23:22)
[2017-06-28] MEDS: NS W/20 MEQ KCL 1,000 ML IV SCH ×2 (00:44→12:40)
[2017-06-28] MEDS: POTASSIUM CHLOR 20 MEQ/100 ML 20 MEQ/100 ML BAG IV SCH ×3 (01:11→05:33)
[2017-06-28] MEDS: METOCLOPRAMIDE 10 MG/2 ML VIAL IVP SCH ×3 (01:27→14:17)
[2017-06-28] MEDS: LORazepam 0.5 MG TABLET PO SCH ×2 (05:32→14:17)
[2017-06-28] MEDS: LEVOTHYROXINE 100 MCG TABLET PO SCH (06:02)
[2017-06-28] MEDS: PANTOPRAZOLE 40 MG TABLET PO SCH (06:02)
[2017-06-28] MEDS: DRONABINOL 2.5 MG CAPSULE PO SCH (06:03)
[2017-06-28] MEDS: SODIUM CHLORIDE FLUSH 0.9% 10 ML SYRINGE IVP SCH ×2 (06:03→14:17)
[2017-06-28 06:05] LABS: BASOPHILS % (AUTO) 0.4 %; EOSINOPHILS # (AUTO) 0.1 10^3/uL (0.0-0.7); EOSINOPHILS % (AUTO) 1.5 %; HGB - HEMOGLOBIN 11.4 g/dL (12.0-16.0); LYMPHOCYTES # (AUTO) 0.9 10^3/uL (1.5-3.5); LYMPHOCYTES % (AUTO) 22.6 %; MEAN CORPUSCULAR HGB CONC 34.2 g/dL (32.0-36.0); MEAN CORPUSCULAR VOLUME 90.8 fL (81.0-99.0); MEAN PLATELET VOLUME 8.3 fL (7.9-10.8); MONOCYTES # (AUTO) 0.4 10^3/uL (0.0-1.0); MONOCYTES % (AUTO) 9.7 %; NEUTROPHILS # (AUTO) 2.7 10^3/uL (1.5-6.6); NEUTROPHILS % (AUTO) 65.8 %; PLT - PLATELET COUNT 93 10^3/uL (130-450); RED BLOOD COUNT 3.66 10^6/uL (4.20-5.40); WHITE BLOOD COUNT 4.1 x10^3/uL (4.8-10.8)
[2017-06-28 06:17] LABS: ALBUMIN 2.5 g/dL (3.2-5.5); ALBUMIN/GLOBULIN RATIO 0.6 (1.0-2.2); BILIRUBIN,TOTAL 2.1 mg/dL (0.2-1.0); CALCIUM 8.1 mg/dL (8.5-10.3); CREATININE 0.7 mg/dL (0.4-1.0); MAGNESIUM 1.9 mg/dL (1.7-2.8); TOTAL PROTEIN 6.8 g/dL (6.7-8.2)
[2017-06-28] MEDS ORDERED: LEVOTHYROXINE 25 MCG TABLET PO SCH (07:00)
[2017-06-28] MEDS ORDERED: LOPERAMIDE 2 MG CAPSULE PO PRN (07:40)
[2017-06-28] MEDS: INSULIN ASPART 300 UNIT/3 ML PEN SUBQ SCH ×2 (07:50→11:34)
--- NOTE | 2017-06-28 08:18 | DISCHARGE SUMMARY ---
Discharge Summary Admit Date: 06/26/17 Discharge Date: 06/28/17 Discharging Provider: LUIS ALFREDO Brady Primary Care Provider: Dao Solorzano Code Status: Do Not Attempt Resuscitation Condition at Discharge: Good Discharge Disposition: 01 Home, Self Care - DIAGNOSES Admission Diagnoses: Intractable nausea and vomiting (R11.2) Atrial fibrillation (I48.91) Liver mass (R16.0) Ovarian mass (N83.9) Discharge Diagnoses with Status of Each Condition: Intractable nausea and vomiting (R11.2) resolved. Atrial fibrillation (I48.91) chronic, was in sinus rhythm for much of this stay. Liver mass (R16.0) new dx, some testing/imaging was completed here. Ovarian mass (N83.9) new dx, some testing/imaging was completed here. Diarrhea (R19.7) much less, on one stool reported on the day of discharge. - HPI History of Present Illness: Sommer Deluna is a 71-year old white female with a past medical history of hypertension, hyperlipidemia, TIA, headaches, sinusitis, DM type 2, hypothyroidism, melanoma ~20, and recent atrial fibrillation on Eliquis. She presented reluctantly to the ED today after having uncontrolled N/V/D, abdominal pain, chills and fatigue. The onset of symptoms started a short time after being diagnosed with atrial fibrillation. She was found to have low magnesium, and low potassium serum blood levels and placed on high dose supplements. She states that her emotions became very flat, she became overwhelmed with her regular daily tasks, developed a dry cough, had daily frontal forehead headaches, and was profoundly tired for most days. About 4-5 days ago she had increased abdominal discomfort that began in her RUQ and felt crampy to her midline. This would come and go. She continued to feel nauseated , dizzy, now with vomiting and diarrhea. A CT abdomen/pelvis was completed in the ED and shows a liver and ovarian tumor, multiple abdominal varices, and colonic wall edema. Results were shared with patient and her son by ER doctor. She will be admitted for further treatment of her symptoms and an ultrasound/ MRI of abdomen/pelvis. - HOSPITAL COURSE Hospital Course: The following problems/diagnoses were prevalent during this hospital stay: (1) Intractable nausea and vomiting- Patient has admitted to slight nausea daily that began ~3 months ago, but has progressively increased to the point that it has now caused vomiting. For today's exam, nausea is less, vomiting is resolved, but diarrhea has not slowed down. Head CT to rule out acute bleed, or tumor as a cause of nausea, which was negative. This is likely a consequence of liver cirrhosis. Patient was continued on antiemetics and antidiarrheals; Lorazepam, and Reglan was added for symptom management. (2) Hypokalemia- Patient admits to chronically being hypokalemic for at least since January 2017 when she was found to have atrial fibrillation. Patient had a very low K+ of just 2.5 upon admission to ED. She was started on replacement, and once arriving to the nursing floor was put on a maintenance fluid with 20Meq @ 100ml/hour, which she remains on. Her K+ was improved today at 3, but decreased again to 2.8. On the day of discharge her K+ was much improved to 3.3. Patients labs were monitored and replaced as needed. Spironolactone 50mg daily was added as a K+ sparing agent. (3) Liver mass- A CT of abdomen/pelvis was completed on admission and showed a 3.5 cm segment 8 liver mass, worrisome for primary liver malignancy. Patient and son made aware of this finding via ED doctor. Patient underwent an MRI of abdomen and pelvis as a follow up to her admission CT scan. A hepatitis panel was ordered and is pending. An abdominal US was completed which confirmed a majority of the main portal vein being thrombosed, partially thrombosed- appearing left portal vein, thrombosed right portal vein, diffuse coarsened hepatic parenchymal echogenicity representing cirrhosis, and a small volume upper abdominal ascites. (4) Ovarian mass- A CT abdomen/pelvis was completed on admission and shows a cystic lesion in the right ovary measuring 4.6cm in diameter. Cyst versus benign or malignant cystic neoplasm. Patient underwent an Ultrasound of pelvis which showed a possible complex cystic structure measuring 5.5 x 3.8 x 3.7 cm in the right adnexa. Cancer marker labs were ordered and shows an elevated Ca 125 antigen at 592.4, CEA normal at 2.1, and an elevated CRP of 4.5. (5) Headache- Patient notes a "dull" headache that started several months ago. She points to in her frontal region right above her bilateral eyes. Headache persists today. Patient was treated with pain medications. Will suggest sinus lavage when patient discharges. A head CT was completed due to ongoing N/V and complaints of a headache, which was negative. Disposition: Patient was discharged in stable condition with very few stools today, no vomiting and only mild nausea. She was given new prescriptions, instructions to follow up with PCP for next steps in new diagnoses. She was transported via private car with son. She had no oxygen needs. Nteo Deluna son was called at home with updated MRI results. - ALLERGIES Allergies/Adverse Reactions: Allergies Allergy/AdvReac Type Severity Reaction Status Date / Time albuterol Allergy Unknown Verified 06/26/17 14:30 propoxyphene napsylate * Allergy Hallucinati Verified 06/26/17 14:30 [From Darvocet-N] ons tetracycline Allergy Unknown Verified 06/26/17 14:30 oxycodone HCl * AdvReac Hallucinati Verified 06/26/17 14:30 [From Percocet] ons - MEDICATIONS Home Medications: Ambulatory Orders Medication Instructions Recorded Confirmed Estrogens, Conjugated [Premarin] 0.3 mg PO DAILY 02/24/16 06/27/17 Apixaban [Eliquis] 5 mg PO BID 06/27/17 06/27/17 Lactobacillus Acidophilus 1 cap PO BIDWM 06/27/17 06/27/17 [Acidophilus Lactobacilli] Levothyroxine Sodium [Synthroid] 200 mcg PO QDAC 06/27/17 06/27/17 Magnesium Oxide [Magnesium] 250 mg PO BID 06/27/17 06/27/17 Metoprolol Succinate 50 mg PO QPM 06/27/17 06/27/17 Metoprolol Succinate 100 mg PO DAILY 06/27/17 06/27/17 Dronabinol [Marinol] 2.5 mg PO BIDAC PRN #30 capsule 06/28/17 Dronabinol [Marinol] 2.5 mg PO Q6H #30 capsule 06/28/17 Insulin Glargine [Lantus Solostar] 5 units INJ QPM #5 pen 06/28/17 LORazepam [Ativan] 0.5 mg PO Q4H PRN #20 tablet 06/28/17 Levothyroxine Sodium 25 mcg PO DAILY #30 tablet 06/28/17 Lisinopril [Zestril] 5 mg PO BID #30 tablet 06/28/17 Loperamide [Imodium] 2 mg PO Q4H PRN #30 capsule 06/28/17 Pen Needle, Diabetic [Insulin Pen 1 each MC QPM #5 dis.needle 06/28/17 Needle] Potassium Chloride [Klor-Con 10] 10 meq PO DAILY #120 tablet.er 06/28/17 Spironolactone [Aldactone] 50 mg PO DAILY #30 tablet 06/28/17 - PHYSICAL EXAM AT DISCHARGE General Appearance: positive: No acute distress, Alert Eyes Bilateral: positive: Normal inspection, PERRL, Other (mild scleral icterus. ) ENT: positive: ENT inspection nml, Pharynx nml, Dry mucous membranes Neck: positive: Nml inspection, Thyroid nml, No JVD, Trachea midline, Stiff neck Respiratory: positive: Chest non-tender, No respiratory distress Cardiovascular: positive: No gallop, Irregularly irregular, Decreased pulse(s) Peripheral Pulses: positive: 1+ Abdomen: positive: Tenderness, Guarding, Hepatomegaly, Splenomegaly, Mass, Abnml bowel sounds Back: positive: Nml inspection Skin: positive: No rash, Warm, Dry, Other (mild jaundice noted.) Extremities: positive: Non-tender, Full ROM, No pedal edema, Joint swelling Neurologic/Psychiatric: positive: Oriented x3, CN's nml (2-12), Motor nml, Sensation nml Reflexes: Bicep (R): 3+, Bicep (L): 3+ - LABS Result Diagrams: 06/28/17 06:00 06/28/17 06:00 - DIAGNOSTIC IMAGING Diagnostic Imaging Results: Prelim report reviewed, Final report reviewed Diagnostic Imaging Results Comments: MRI abdomen: FINDINGS: Lung Bases: Grossly clear. Liver: Heterogeneous signal with nodular capsule consistent with cirrhosis. Nearly occlusive thrombosis of main portal vein. Thrombosed right and left portal veins. Diminutive but patent right, middle, and left hepatic veins. Liver observations (at least 4): 1. Segment 8 heterogeneous arterial phase hepatic enhancement (APHE) 2.8 x 2.2 cm () with washout and equivocal capsule on equilibrium phase (), LR-4. 2. Segment 6 heterogeneous APHE with probable eccentric necrosis best shown on portal phase 3.7 x 3.7 cm (), with partial delayed washout and no capsule , LR-M. 3. Subcapsular segment 7/8 nodular 5 mm APHE without washout or capsule, LR-2. 4. Segment 2 exophytic 13 mm nodule without APHE, LR-2. Gallbladder: Surgically absent. Bile Ducts: No amanda intrahepatic or extrahepatic ductal dilatation. CHD and CBD up to 10 mm in diameter. No intraductal filling defect. Pancreas: No obvious intrinsic abnormality or mass. No ductal dilatation. Spleen: Enlarged 15.4 cm in height, without infarct or focal lesion. Adrenals: No nodule. Kidneys: No hydronephrosis or atrophy. A tiny right renal cyst. Peritoneal Cavity/Bowel: Moderate ascites in the upper abdomen and in bilateral paracolic gutters. No loculated enhancing collection. No dilated bowel. Nonspecific small portacaval node. No amanda adenopathy by CT size criteria. Vasculature: Diffuse thrombosis of splenic vein. Nearly occlusive thrombus in the SMV and portal venous confluence, with clot extension into the portal veins. Perisplenic, retrogastric, perigastric, gastrohepatic, and distal esophageal varices. No abdominal aortic aneurysm. IMPRESSION: 1. Technically limited exam due to moderate motion artifact. 2. A 2.8 cm segment 8 lesion; LR-4, moderate likelihood of HCC. 3. A 3.7 cm segment 6 lesion; LR-M, likely non-HCC malignancy such as metastasis. 4. Extensive venous thrombosis including splenic, superior mesenteric, main, and right and left portal veins. Technically limited image detail precludes detailed evaluation. 5. Cirrhosis with portal hypertension including moderate ascites and prominent varices. Abdomen limited US: FINDINGS: Liver: Heterogeneous liver echogenicity. No suspicious focal lesion. Liver measures 15.8 cm in length. Portal Vein: Main portal vein appears at least partially thrombosed. There is a small area of patent blood flow seen within the distal main portal vein. Partially patent left portal vein. Left hepatic vein appears patent. Gallbladder: Surgically absent. Biliary System: CBD measures 5.5 mm. No intrahepatic or extrahepatic ductal dilatation. Pancreas: Normal appearing head and body. Other portions are obscured by overlying structures. Right Kidney: Visualized portions of the right kidney are without significant abnormality. Right kidney measures 11.8 cm in length. Other: There is volume perihepatic ascites. IMPRESSION: 1. Technically compromised exam due to patient body habitus. 2. Majority of the main portal vein appears thrombosed, with a few areas of possible patency seen at the distal portion near the portal splenic confluence. 2. Partially thrombosed-appearing left portal vein. Thrombosed right portal vein. 3. Diffuse coarsened hepatic parenchymal echogenicity representing cirrhosis. Known liver mass could not identify on this exam. 4. Small-volume upper abdominal ascites. 5. Status post cholecystectomy. No pathologic biliary dilatation. Pelvis Complete US: FINDINGS: Patient body habitus compromises exam sensitivity and specificity. Uterus: Surgically absent. Right Ovary: Normal appearing right ovary is not visualized. There is a possible complex cystic structure measuring 5.5 x 3.8 x 3.7 cm in the right adnexa corresponding with the prior CT noted abnormality. Left Ovary: Not visualized. Fluid: There is ascites within the pelvis. Other: No other significant findings. IMPRESSION: 1. Cystic lesion within the right adnexa corresponding with a prior CT noted abnormality. There is suggestion of internal septation and potential internal debris. Further assessment could be considered with MRI if clinically warranted. 2. Left ovary is not identified on this exam. 3. Medium amount of fluid layering within the pelvis. 4. Uterus is absent. Head CT: FINDINGS: Parenchyma: No intraparenchymal hemorrhage. No evidence of mass, midline shift, or CT findings of infarction. Benitez-white differentiation is distinct. Extraaxial Spaces: Normal for age. No subdural or epidural collections identified. Ventricles: Normal in size and position. Sinuses and Orbits: Imaged paranasal sinuses, orbits, and mastoids show no significant abnormality. Bones: No evidence of fracture or calvarial defect. Other: None. IMPRESSION: Normal noncontrast head CT. Abdominal/Pelvis CT: FINDINGS: Lung Bases: Unremarkable. Liver: There are findings of diffuse and chronic liver disease with a moderately lobulated contour to the liver capsule. In segment 8, there is a round hyperdense lesion which measures 3.5 x 3.3 x 2.8 cm on series 3 image 15. The portal veins do not appear to enhance well with contrast and are difficult to characterize. There is a crescent of contrast opacification in the left portal vein, raising the suspicion for portal venous clot or portal venous tumor. The hepatic veins are not well seen. The inferior vena cava is patent. Gallbladder/Bile Ducts: Gallbladder is absent. Spleen: Normal. Pancreas: The pancreas is difficult to visualize, noting a dilated superior mesenteric vein and splenic vein which appear isodense to pancreatic parenchyma. Adrenal Glands: Normal. Kidneys: Normal. No masses or hydronephrosis. Peritoneal Cavity/Bowel: There is a small volume of free fluid in the upper abdomen and lower abdomen. There are recanalized umbilical veins with multiple abdominal varices. There is edema of the wall of the colon. There is no mechanical bowel obstruction. No organized abscess is seen. Pelvic Organs: There is a peripherally enhancing cystic lesion in the right adnexa measuring 4.6 x 3.9 x 3.5 cm. Uterus not visualized. Left ovary is small in size. Vasculature: No aneurysm. Bones: There is multilevel degenerative disease of the spine. Other: None. IMPRESSION: 1. Findings of chronic liver disease and liver fibrosis/cirrhosis. 2. Heterogeneous hypoenhancement of the intrahepatic portal veins with dilated splenic veins and superior mesenteric veins. Findings suspicious for portal vein thrombosis versus portal vein tumor. 3. 3.5 cm segment 8 liver mass, hyperdense to liver parenchyma, should be considered worrisome for primary liver malignancy, with differential diagnosis including hypervascular liver metastasis or incidental benign liver lesion. This lesion could be characterized with a dedicated liver MRI or multiphase CT. 4. Small volume of ascites. 5. Multiple abdominal varices. 6. Colonic wall edema, likely secondary to ascites or liver disease. 7. Cystic lesion in the right ovary measuring 4.6 cm in diameter. Cyst versus benign or malignant cystic neoplasm. Chest x-ray 2-view: FINDINGS: Lungs/Pleura: No focal opacities evident. No pleural effusion. No pneumothorax. Normal volumes. Mediastinum: There is mild aortic arch atherosclerotic calcification. Heart size is normal. Other: None. IMPRESSION: No acute cardiopulmonary abnormality. - FOLLOW UP Follow Up: Disposition: 01 Home, Self Care Condition: Good Prescriptions: Dronabinol [Marinol] 2.5 mg PO BIDAC PRN #30 capsule PRN Reason: Indigestion Insulin Glargine [Lantus Solostar] 5 units INJ QPM #5 pen Levothyroxine Sodium 25 mcg PO DAILY #30 tablet Lisinopril [Zestril] 5 mg PO BID #30 tablet Loperamide [Imodium] 2 mg PO Q4H PRN #30 capsule PRN Reason: Diarrhea LORazepam [Ativan] 0.5 mg PO Q4H PRN #20 tablet PRN Reason: Anxiety Pen Needle, Diabetic [Insulin Pen Needle] 1 each MC QPM #5 dis.needle Potassium Chloride [Klor-Con 10] 10 meq PO DAILY #120 tablet.er Spironolactone [Aldactone] 50 mg PO DAILY #30 tablet Diet: Regular Activity Restrictions: No Restrictions Shower Restrictions: No Driving Restrictions: No Weight Bearing: Full Weight Instruction Topics: Insulin Glargine injection, Lisinopril tablets, Spironolactone tablets, Cirrhosis Tx, Cirrhosis, Injection Pens Dc, ED Ascites Additional Instructions or Follow Up instructions: Please see your PCP within one week, he will be forwarded all test results and a summary of this stay. Your TSH was elevated at 10.44, Free T4, T3 were both normal, so your Synthroid was increased by 25 mcg daily. Due to the finding of liver cirrohisis on CT, you were put on Spironolactone, so I have reduced your daily potassium PO to just 40 Meq per day. This is just an estimate, and you should get your labs checked by the end of the week. Also , I have stopped your Metformin and put Lantus injections to be given nightly 5 Units to start. For your nausea, vomiting, diarrhea and poor appetite, I have prescribed a few things to help- see medication list. For your hypertension, I have reduced your lisinopril due to adding Spironolactone. Your heart rate and rhythm was monitored throughout your stay, and nothing alarming was noted. An echocardiogram was ordered-final results are pending. An ultrasound of your abdomen and pelvis were completed. You need to see your PCP within a week as a follow up to this stay. Please take things slow at home and rest if you feel tired. Take all medications as prescribed. - TIME SPENT Time Spent in Discharge (Minutes): 60
[2017-06-28] MEDS ORDERED: GADOBUTROL 10 MMOL/10 ML VIAL ONE (08:50)
[2017-06-28] MEDS: METOPROLOL SUCCINATE 50 MG TABLET PO SCH (09:34)
[2017-06-28] MEDS: SPIRONOLACTONE 25 MG TABLET PO SCH (09:35)
[2017-06-28] MEDS: POLYETHYLENE GLYCOL 3350 17 GM PACKET PO SCH (09:35)
[2017-06-28] MEDS: SODIUM CHLORIDE FLUSH 0.9% 10 ML SYRINGE IVP PRN ×2 (09:40→12:42)
[2017-06-28] MEDS ORDERED: APIXABAN 2.5 MG TABLET PO SCH (13:00)
[2017-06-28] MEDS ORDERED: GADOBUTROL 10 MMOL/10 ML VIAL IVP ONE (15:49)
[2017-06-28 16:37] VITALS: BP 143/79
--- NOTE | 2017-06-28 18:40 | MRI Report ---
EXAM: MR ABDOMEN WITH AND WITHOUT CONTRAST (MR LIVER) EXAM DATE: 06/28/2017 03:37 PM. CLINICAL HISTORY: Liver mass. Cirrhosis. Patient melanoma. Portal vein thrombosis. COMPARISON: CT abdomen pelvis and right upper quadrant ultrasound yesterday. TECHNIQUE: Multiplanar breath-hold T1, T2, and DWI sequences obtained through the abdomen on an [facility] tahir. Images obtained before and after administration of 8 mL Gadavist intravenous contrast. Multiph ase postcontrast images obtained of the liver and abdomen. Image quality is technically limited by mo derate motion. FINDINGS: Lung Bases: Grossly clear. Liver: Heterogeneous signal with nodular capsule consistent with cirrhosis. Nearly occlusive thrombos is of main portal vein. Thrombosed right and left portal veins. Diminutive but patent right, middle, and left hepatic veins. Liver observations (at least 4): 1. Segment 8 heterogeneous arterial phase hepatic enhancement (APHE) 2.8 x 2.2 cm () with wash out and equivocal capsule on equilibrium phase (), LR-4. 2. Segment 6 heterogeneous APHE with probable eccentric necrosis best shown on portal phase 3.7 x 3.7 cm (), with partial delayed washout and no capsule, LR-M. 3. Subcapsular segment 7/8 nodular 5 mm APHE without washout or capsule, LR-2. 4. Segment 2 exophytic 13 mm nodule without APHE, LR-2. Gallbladder: Surgically absent. Bile Ducts: No amanda intrahepatic or extrahepatic ductal dilatation. CHD and CBD up to [address] No intraductal filling defect. Pancreas: No obvious intrinsic abnormality or mass. No ductal dilatation. Spleen: Enlarged 15.4 cm in height, without infarct or focal lesion. Adrenals: No nodule. Kidneys: No hydronephrosis or atrophy. A tiny right renal cyst. Peritoneal Cavity/Bowel: Moderate ascites in the upper abdomen and in bilateral paracolic gutters. No loculated enhancing collection. No dilated bowel. Nonspecific small portacaval node. No amanda adenop athy by CT size criteria. Vasculature: Diffuse thrombosis of splenic vein. Nearly occlusive thrombus in the SMV and portal veno us confluence, with clot extension into the portal veins. Perisplenic, retrogastric, perigastric, gas trohepatic, and distal esophageal varices. No abdominal aortic aneurysm. IMPRESSION: 1. Technically limited exam due to moderate motion artifact. 2. A 2.8 cm segment 8 lesion; LR-4, moderate likelihood of HCC. 3. A 3.7 cm segment 6 lesion; LR-M, likely non-HCC malignancy such as metastasis. 4. Extensive venous thrombosis including splenic, superior mesenteric, main, and right and left whitney l veins. Technically limited image detail precludes detailed evaluation. 5. Cirrhosis with portal hypertension including moderate ascites and prominent varices. RADIA The above findings were discussed with the referring provider by Dr. Zachary Isaacs at 18:30 hrs on 06/28. Referring Provider Line: [phone] SITE ID: [id number]
[2017-06-29] MEDS ORDERED: LISINOPRIL 5 MG TABLET PO SCH (09:00)
[2017-06-29 11:56] LABS: HEPATITIS B SURFACE ANTIGEN NON-REACTIVE (NON-REACTIVE)
[2017-06-29 12:07] LABS: HEPATITIS A IGM NON-REACTIVE (NON-REACTIVE); HEPATITIS B CORE ANTIBODY IGM NON-REACTIVE (NON-REACTIVE); HEPATITIS B SURFACE ANTIGEN NON-REACTIVE (NON-REACTIVE); HEPATITIS C ANTIBODY NON-REACTIVE (NON-REACTIVE)
[2017-06-29 12:22] LABS: HEPATITIS A AB TOTAL(IMMUNITY) REACTIVE (NON-REACTIVE); HEPATITIS B CORE AB TOTAL NON-REACTIVE (NON-REACTIVE); HEPATITIS C ANTIBODY NON-REACTIVE (NON-REACTIVE)
[2017-06-30 13:13] LABS: HCV RNA QNT <1.18 NOT DETECTED Log IU/mL (NOT DETECTED); HCV RNA QUANT RT PCR <15 NOT DETECTED IU/mL (NOT DETECTED)
[2017-06-30 15:16] LABS: HEPATITIS BE ANTIGEN NONREACTIVE
[2017-06-30 22:57] LABS: HEPATITIS C VIRAL RNA GENOTYPE NOT DETECTED
== END 2017-06-28 16:57 | disposition home or self-care (01) | DRG 441 ==
LOC: ED 14:22 → MS2 17:39 → OBSVTOIN 18:56
PROVIDERS: ADMIT Nurse Practitioner; ATTEND Nurse Practitioner
DX: R16.0 Hepatomegaly, not elsewhere classified (principal); I81 Portal vein thrombosis; R11.2 Nausea with vomiting, unspecified; K74.60 Unspecified cirrhosis of liver; I48.91 Unspecified atrial fibrillation; N83.9 Noninflammatory disorder of ovary, fallopian tube and broad ligament, unspecified; R97.0 Elevated carcinoembryonic antigen [CEA]; R19.7 Diarrhea, unspecified; E87.6 Hypokalemia; E83.42 Hypomagnesemia; F32.9 Major depressive disorder, single episode, unspecified; I48.2 Chronic atrial fibrillation; I10 Essential (primary) hypertension; E78.5 Hyperlipidemia, unspecified; E11.9 Type 2 diabetes mellitus without complications; E03.9 Hypothyroidism, unspecified; R51 Headache; J32.9 Chronic sinusitis, unspecified; Z66 Do not resuscitate; Z79.84 Long term (current) use of oral hypoglycemic drugs; Z79.01 Long term (current) use of anticoagulants; Z79.899 Other long term (current) drug therapy; Z72.89 Other problems related to lifestyle; Z85.820 Personal history of malignant melanoma of skin; Z86.73 Personal history of transient ischemic attack (TIA), and cerebral infarction without residual deficits
CPT/HCPCS: 36415; 70450; 71046; 74177; 74183; 76705; 76856; 80048; 80053; 80074; 80320; 81001; 81003; 82105; 82140; 82150; 82378; 82550; 82553; 83036; 83605; 83690; 83735; 84439; 84443; 84478; 84481; 84484; 85025; 85610; 85651; 86140; 86304; 86317; 86704; 86707; 86708; 86709; 86803; 87045; 87046; 87086; 87338; 87340; 87350; 87493; 87522; 87798; 87902; 93005; 93306; 96361; 96365; 96374; 96375; 99284